=== PATIENT | male | born 2005 | race Two or more races ===

== ENCOUNTER 2025-08-04 14:33 | Emergency (ER) | payer OTHER ==
[~2025-08-04] VITALS: Ht 190.5 cm; Wt 113.4 kg
[2025-08-04] MEDS ORDERED: ACETAMINOPHEN 500 MG GEL..CAP PO ONE ×2 (17:15→21:14)
[2025-08-04] MEDS ORDERED: ORPHENADRINE CITRATE 30 MG/ML AMPUL IM ONE (17:15)
[2025-08-04] MEDS ORDERED: ORPHENADRINE CITRATE 30 MG/ML AMPUL ONE (21:14)
[2025-08-04] MEDS ORDERED: 8HR ARTHRITIS650 M1 PO (21:50)
[2025-08-04] MEDS ORDERED: NORFLEX100MG PO (21:50)
== END 2025-08-04 22:03 | disposition home or self-care (01) ==
LOC: ER 14:34
DX: S00.83XA Contusion of other part of head, initial encounter (principal); X83.8XXA Intentional self-harm by other specified means, initial encounter; Y93.89 Activity, other specified; Y92.89 Other specified places as the place of occurrence of the external cause; Y99.8 Other external cause status; Z88.2 Allergy status to sulfonamides